=== PATIENT | male | born 1950 | race Caucasian/White ===

== ENCOUNTER 2018-03-20 12:29 | Emergency (ER) | payer OTHER ==
[~2018-03-20] VITALS: Ht 180.3 cm; Wt 61.7 kg
[2018-03-20] MEDS ORDERED: ABAT250V (13:43)
[2018-03-20] MEDS ORDERED: LEVSOD125 PO (13:43)
== END 2018-03-20 14:33 | disposition home or self-care (01) ==
LOC: ER 12:29
DX: T15.02XA Foreign body in cornea, left eye, initial encounter (principal); Z79.899 Other long term (current) drug therapy; E03.9 Hypothyroidism, unspecified
CPT/HCPCS: 99282